=== PATIENT | female | born 1945 | race Caucasian/White ===

== ENCOUNTER 2021-12-22 13:52 | Outpatient (CLI) | payer MEDICARE, OTHER | END 2021-12-22 23:59 | disposition home or self-care (01) | LOC: CARD DIAG 13:52 | PROVIDERS: ATTEND Nurse Practitioner | DX: I08.3 Combined rheumatic disorders of mitral, aortic and tricuspid valves (principal); I48.0 Paroxysmal atrial fibrillation | CPT/HCPCS: 93306 ==